=== PATIENT | female | born 1990 | race Caucasian/White ===

== ENCOUNTER 2018-08-09 08:14 | Emergency (ER) | payer OTHER, SELFPAY ==
[2018-08-09 08:48] LABS: Absolute Lymphocytes (CBC) 2.5 K/uL (0.7-4.9); Absolute Monocytes 0.7 K/uL (0.1-1.3); Absolute Neutrophil 4.9 K/uL (1.8-8.0); Basophils % 0.6 % (0-1.3); Eosinophils % 0.9 % (0-4.4); Hematocrit 43.8 % (36.0-45.0); Lymphocytes % 30.4 % (15.3-44.8); MPV 8.7 fL (7.6-11.3); Monocytes % 8.2 % (3.3-12.3); RBC Red Blood Cell Count 4.85 M/uL (3.86-4.86)
[2018-08-09] MEDS ORDERED: NA CHLORIDE 0.9% 1,000 ML ONE (09:01)
[2018-08-09 09:02] LABS: BUN Blood Urea Nitrogen 10 mg/dL (7-18); Bicarbonate 28 mmol/L (21-32); Glucose Level 91 mg/dL (74-106); Potassium 3.8 mmol/L (3.5-5.1); Sodium Level 142 mmol/L (136-145)
[2018-08-09 09:07] LABS: Urine Blood NEGATIVE (NEG); Urine Glucose NEGATIVE (NEG); Urine Protein NEGATIVE (NEG); Urine Specific Gravity >1.030 (1.005-1.030); Urine pH 5.5 (5.0-7.0)
--- NOTE | 2018-08-09 09:15 | RAD REPORT ---
EXAM DESCRIPTION: CT - Stone Protocol - 08/09/2018 9:08 am CLINICAL HISTORY: Flank pain. Right flank pain COMPARISON: No comparisons TECHNIQUE: Axial images were obtained without oral or IV contrast. Lack of contrast limits solid org an and vascular assessment. The [id number] spans the entirety of the system partially obscuring uppermost abdomen and lung bases. Coronal reformatted images were obtained and reviewed. All CT scans are performed using dose optimization technique as appropriate and may include automated exposure control or mA/KV adjustment according to patient size. FINDINGS: The lower lung hein are clear. Imaged portions of the liver and spleen show no suspicious findings on non-contrast imaging. The panc reas and adrenal glands are normal. No pathologic lymphadenopathy in the abdomen or pelvis. No urinary tract stones or obstructive uropathy. No bowel obstruction, free air, free fluid or abscess. Appendectomy. No significant bony abnormality. 4.5 cm left ovarian cyst. IMPRESSION: No urinary tract stones or obstructive uropathy. Appendectomy. 4.5 cm left ovarian cyst.
--- NOTE | 2018-08-09 09:56 | EDPHYS ---
Physician Documentation [facility] Name: Iqra Domínguez Age: 28 yrs Sex: Female : 1990 Arrival Date: 08/09/2018 Time: 08:17 Bed 18 Private MD: ED Physician Sai Solorio HPI: 08/09 08:41 This 28 yrs old Female presents to ER via Ambulatory with complaints of Back kdr Pain. 08:41 The patient presents with pain that is acute, with no known mechanism of injury. The kdr symptoms are located in the low back, Right CVA tenderness. Onset: The symptoms/episode began/occurred suddenly, 1 week(s) ago. The pain does not radiate. Associated signs and symptoms: The patient has no apparent associated signs or symptoms. The problem was sustained from unknown cause. Modifying factors: The patient symptoms are alleviated by nothing, the patient symptoms are aggravated by movement, walking. Severity of symptoms: At their worst the symptoms were moderate, severe, just prior to arrival, in the emergency department the symptoms have improved, a " 5" out of "10", Does not appear to be in any acute distress. The patient has not experienced similar symptoms in the past. The patient has not recently seen a physician. The patient had some Amoxicillin at home and has take that for a few days. Here s/s have seeming improved but she still has the right CVA tenderness. 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 - Social history:: Smoking status: . - Ebola Screening: : Patient denies travel to an Ebola-affected area in the 21 days before illness onset. ROS: 08:41 Constitutional: Negative for fever, chills, and weight loss, Eyes: Negative for injury, kdr pain, redness, and discharge, ENT: Negative for injury, pain, and discharge, Neck: Negative for injury, pain, and swelling, Cardiovascular: Negative for chest pain, palpitations, and edema, Respiratory: Negative for shortness of breath, cough, wheezing, and pleuritic chest pain, Abdomen/GI: Negative for abdominal pain, nausea, vomiting, diarrhea, and constipation, : Negative for injury, bleeding, discharge, and swelling, MS/Extremity: Negative for injury and deformity, Skin: Negative for injury, rash, and discoloration, Neuro: Negative for headache, weakness, numbness, tingling, and seizure activity. Psych: Negative for depression, anxiety, suicide ideation, homicidal ideation, and hallucinations, Allergy/Immunology: Negative for hives, rash, and allergies, Endocrine: Negative for neck swelling, polydipsia, polyuria, polyphagia, and marked weight changes, Hematologic/Lymphatic: Negative for swollen nodes, abnormal bleeding, and unusual bruising. 08:41 Back: Positive for pain at rest, pain with movement, of the right mid back, Negative for injury or acute deformity, decreased range of motion. Exam: 08:41 Constitutional: This is a well developed, well nourished patient who is awake, alert, kdr and in no acute distress. Head/Face: Normocephalic, atraumatic. Eyes: Pupils equal round and reactive to light, extra-ocular motions intact. Lids and lashes normal. Conjunctiva and sclera are non-icteric and not injected. Cornea within normal limits. Periorbital areas with no swelling, redness, or edema. Neck: Trachea midline, no thyromegaly or masses palpated, and no cervical lymphadenopathy. Supple, full range of motion without nuchal rigidity, or vertebral point tenderness. No Meningismus. Chest/axilla: Normal chest wall appearance and motion. Nontender with no deformity. No lesions are appreciated. Cardiovascular: Regular rate and rhythm with a normal S1 and S2. No gallops, murmurs, or rubs. Normal PMI, no JVD. No pulse deficits. Respiratory: Lungs have equal breath sounds bilaterally, clear to auscultation and percussion. No rales, rhonchi or wheezes noted. No increased work of breathing, no retractions or nasal flaring. Skin: Warm, dry with normal turgor. Normal color with no rashes, no lesions, and no evidence of cellulitis. MS/ Extremity: Pulses equal, no cyanosis. Neurovascular intact. Full, normal range of motion. Neuro: Awake and alert, GCS 15, oriented to person, place, time, and situation. Cranial nerves II-XII grossly intact. Motor strength 5/5 in all extremities. Sensory grossly intact. Cerebellar exam normal. Normal gait. Psych: Awake, alert, with orientation to person, place and time. Behavior, mood, and affect are within normal limits. 08:41 Abdomen/GI: Inspection: abdomen appears normal, obese Bowel sounds: active, all quadrants, Palpation: soft, mild abdominal tenderness, in the left lower quadrant. Vital Signs: 08:28 BP 115 / 74; Pulse 85; Resp 18; Temp 97.8(TE); Pulse Ox 99% on R/A; Pain 5/10; tw2 09:10 BP 114 / 77; Pulse 83; Resp 17; Pulse Ox 99% on R/A; tw2 MDM: 08:41 Data reviewed: vital signs, nurses notes, lab test result(s), radiologic studies. kdr Counseling: I had a detailed discussion with the patient and/or guardian regarding: the historical points, exam findings, and any diagnostic results supporting the discharge/admit diagnosis, lab results, radiology results, the need for outpatient follow up. 09:56 Patient medically screened. kdr 08/09 08:33 Order name: Urine Dipstick--Ancillary (enter results); Complete Time: 09:52 em1 08/09 08:33 Order name: Urine --Ancillary (enter results); Complete Time: 09:52 em1 08/09 08:34 Order name: CBC with Diff; Complete Time: 09:52 kdr 08/09 08:34 Order name: Chem 7; Complete Time: 09:52 kdr 08/09 08:34 Order name: CT Stone Protocol; Complete Time: 09:52 kdr 08/09 08:33 Order name: Urine Dipstick-Ancillary (obtain specimen); Complete Time: 08:33 em1 08/09 08:33 Order name: Urine Test (obtain specimen); Complete Time: 08:33 em1 08/09 08:34 Order name: Urine Dipstick-Ancillary (obtain specimen); Complete Time: 08:46 kdr 08/09 08:34 Order name: Urine Test (obtain specimen); Complete Time: 08:46 kdr 08/09 08:46 Order name: IV Start; Complete Time: 08:46 tw2 Administered Medications: 08:53 Drug: NS 0.9% 1000 ml Route: IV; Rate: 1 bolus; Site: right antecubital; tw2 10:08 Follow up: IV Status: Completed infusion; IV Intake: 1000ml ls4 Disposition: 08/09/18 09:56 Discharged to Home. Impression: Right Flank pain, Left ovarian cyst. - Condition is Stable. - Discharge Instructions: Abdominal Pain, Adult, Owte-wc-Oxux, Ovarian Cyst, Ikor-po-Zsvo, Flank Pain, [id number]-[id number]. - Prescriptions for Cyclobenzaprine 10 mg Oral Tablet - take 1 tablet by ORAL route every 8 hours As needed; 15 tablet. Tramadol 50 mg Oral Tablet - take 1 tablet by ORAL route every 8 hours as needed; 12 tablet. - Medication Reconciliation Form, Thank You Letter, Antibiotic Education form. - Follow up: Private Physician; When: 2 - 3 days; Reason: If symptoms return, Further diagnostic work-up, Recheck today's complaints, Continuance of care, Re-evaluation by your physician. - Problem is new. - Symptoms have improved. Signatures: Dispatcher [employer] EDMS Sai Solorio MD MD kdr Gwyn Corona em1 Stephanie Salvador RN RN tw2 Alda Guerrero RN RN ls4 Corrections: (The following items were deleted from the chart) 10:09 09:56 08/09/2018 09:56 Discharged to Home. Impression: Right Flank pain, Left ovarian ls4 cyst. Condition is Stable. Forms are Medication Reconciliation Form, Thank You Letter, Antibiotic Education, Prescription Opioid Use. Follow up: Private Physician; When: 2 - 3 days; Reason: If symptoms return, Further diagnostic work-up, Recheck today's complaints, Continuance of care, Re-evaluation by your physician. Problem is new. Symptoms have improved. kdr
--- NOTE | 2018-08-09 09:56 | ER ---
Nurse's Notes [facility] Name: Iqra Domínguez Age: 28 yrs Sex: Female : 1990 Arrival Date: 08/09/2018 Time: 08:17 Bed 18 Private MD: Diagnosis: Right Flank pain, Left ovarian cyst Presentation: 08/09 08:19 Presenting complaint: Patient states: i had a uti last week, i took amoxicillin hoping tw2 it would go away but my low back is still hurting and i feel nauseous and i have burning with urination and i go a lot. Transition of care: patient was not received from another setting of care. Onset of symptoms was August 09, 2018. Risk Assessment: Do you want to hurt yourself or someone else? Patient reports no desire to harm self or others. Initial Sepsis Screen: Does the patient meet any 2 criteria? No. Patient's initial sepsis screen is negative. Does the patient have a suspected source of infection? No. Patient's initial sepsis screen is negative. Care prior to arrival: None. 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 - Social history:: Smoking status: . - Ebola Screening: : Patient denies travel to an Ebola-affected area in the 21 days before illness onset. Screenin:21 Abuse screen: Denies threats or abuse. Nutritional screening: No deficits noted. tw2 Tuberculosis screening: No symptoms or risk factors identified. Fall Risk None identified. Assessment: 08:29 General: Appears in no apparent distress. Behavior is calm, cooperative, appropriate tw2 for age. Pain: Complains of pain in left low back and right low back. Neuro: Level of Consciousness is awake, alert, obeys commands, Oriented to person, place, time, situation. Cardiovascular: Heart tones S1 S2 Patient's skin is warm and dry. Respiratory: Airway is patent Respiratory effort is even, unlabored, Respiratory pattern is regular, symmetrical, Breath sounds are clear bilaterally. GI: Abdomen is flat, Bowel sounds present X 4 quads. Reports nausea. : Reports burning with urination, urgency, urinary frequency. EENT: No signs and/or symptoms were reported regarding the EENT system. Derm: No signs and/or symptoms reported regarding the dermatologic system. Musculoskeletal: Circulation, motion, and sensation intact. Range of motion: intact in all extremities. 09:11 Reassessment: Patient appears in no apparent distress at this time. No changes from tw2 previously documented assessment. Patient and/or family updated on plan of care and expected duration. Pain level reassessed. Patient is alert, oriented x 3, equal unlabored respirations, skin warm/dry/pink. Vital Signs: 08:28 BP 115 / 74; Pulse 85; Resp 18; Temp 97.8(TE); Pulse Ox 99% on R/A; Pain 5/10; tw2 09:10 BP 114 / 77; Pulse 83; Resp 17; Pulse Ox 99% on R/A; tw2 ED Course: 08:17 Patient arrived in ED. mr 08:17 Sai Solorio MD is Attending Physician. kdr 08:18 Stephanie Salvador RN is Primary Nurse. tw2 08:20 Triage completed. tw2 08:20 Arm band placed on. tw2 08:21 Bed in low position. Call light in reach. Pulse ox on. NIBP on. tw2 08:41 Inserted saline lock: 20 gauge in right antecubital area, using aseptic technique. tw2 Blood collected. 09:08 CT Stone Protocol In Process Unspecified. EDMS 09:55 Report given to CECE Lizama. tw2 10:08 No provider procedures requiring assistance completed. IV discontinued, intact, ls4 bleeding controlled, No redness/swelling at site. Pressure dressing applied. Administered Medications: 08:53 Drug: NS 0.9% 1000 ml Route: IV; Rate: 1 bolus; Site: right antecubital; tw2 10:08 Follow up: IV Status: Completed infusion; IV Intake: 1000ml ls4 Intake: 10:08 IV: 1000ml; Total: 1000ml. ls4 Outcome: 09:56 Discharge ordered by . kdr 10:09 Discharged to home ambulatory. ls4 10:09 Condition: stable 10:09 Discharge instructions given to patient, Instructed on discharge instructions, follow up and referral plans. medication usage, Demonstrated understanding of instructions, follow-up care, medications, Prescriptions given X 2. 10:09 Patient left the ED. ls4 Signatures: Dispatcher [employer] EDMS Sai Solorio MD MD [facility] Anitha Negro mr Stephanie Salvador, RN RN tw2 Alda Guerrero RN RN ls4 Corrections: (The following items were deleted from the chart) 08:32 08:28 BP 115 / 74; Pulse 85bpm; Resp 18bpm; Pulse Ox 99% RA; Pain 5/10; tw2 tw2
[2018-08-09 10:16] VITALS: BP 114/77; O2SAT 99
[2018-08-09 10:18] VITALS: TEMP 97.8
== END 2018-08-09 10:09 | disposition home or self-care (01) ==
LOC: ER 08:14
DX: N83.202 Unspecified ovarian cyst, left side (principal)
CPT/HCPCS: 36415; 74176; 76377; 80048; 81003; 81025; 85025; 96360; 99284; J7030